=== PATIENT | male | born 1990 | race American Indian/Alaskan Native ===

== ENCOUNTER 2018-12-07 23:07 | Emergency (ER) | payer BC, OTHER ==
--- NOTE | 2018-12-07 23:19 | EDM.PDOC ---
ED HPI GENERAL MEDICAL PROBLEM - General Chief Complaint: Respiratory Problem Stated Complaint: RT CHEST PAIN Time Seen by Provider: 12/07/18 23:14 Source of Information: Reports: Patient History Limitations: Reports: No Limitations - History of Present Illness INITIAL COMMENTS - FREE TEXT/NARRATIVE: Pierre comes into [facility] ED with a week long hx of R upper chest pain, worse with deep breath, and some perceived SOB. Sxs have been progressive, without cough, fever, palpitations, or GI upset. Of interest is a PMH of pneumothorax about 10 years ago. He has tried no meds. - Related Data Allergies Allergy/AdvReac Type Severity Reaction Status Date / Time morphine Allergy Nausea and Verified 12/07/18 23:44 Vomiting cats Allergy Other Uncoded 12/07/18 23:44 Home Meds: Home Meds .Claritin 1 tab PO DAILY PRN 12/07/18 [History] .Ibuprofen 1 tab PO ASDIRECTED PRN 12/07/18 [History] Past Medical History Respiratory History: Reports: Pneumothorax ED ROS GENERAL - Review of Systems Review Of Systems: See Below Constitutional: Reports: No Symptoms HEENT: Reports: No Symptoms Respiratory: Reports: Pleuritic Chest Pain (R anterior chest) Cardiovascular: Reports: Chest Pain Endocrine: Reports: No Symptoms GI/Abdominal: Reports: No Symptoms : Reports: No Symptoms Musculoskeletal: Reports: No Symptoms Skin: Reports: No Symptoms Neurological: Reports: No Symptoms Psychiatric: Reports: No Symptoms Hematologic/Lymphatic: Reports: No Symptoms Immunologic: Reports: No Symptoms ED EXAM, GENERAL - Physical Exam Exam: See Below Exam Limited By: No Limitations General Appearance: Alert, WD/WN, No Apparent Distress, Anxious Eye Exam: Bilateral Eye: EOMI, Normal Inspection, PERRL Ears: Normal External Exam Nose: Normal Inspection Throat/Mouth: Normal Inspection, Normal Lips, Normal Teeth, Normal Gums, Normal Oropharynx, Normal Voice, No Airway Compromise Head: Normocephalic Neck: Normal Inspection, Supple, Non-Tender, Full Range of Motion Respiratory/Chest: No Respiratory Distress, Lungs Clear, Normal Breath Sounds, No Accessory Muscle Use, Chest Non-Tender Cardiovascular: Normal Peripheral Pulses, Regular Rate, Rhythm, No Edema, No Gallop, No JVD, No Murmur GI/Abdominal: Normal Bowel Sounds, Soft, Non-Tender, No Organomegaly, No Distention, No Mass (Male) Exam: Deferred Rectal (Males) Exam: Deferred Back Exam: Normal Inspection Extremities: Normal Inspection Neurological: Alert, Oriented, CN II-XII Intact, Normal Cognition, Normal Gait, No Motor/Sensory Deficits Psychiatric: Normal Affect, Anxious Skin Exam: Warm, Dry, Intact, Normal Color, No Rash Lymphatic: No Adenopathy Course - Vital Signs Text/Narrative:: Following assessment, a 2 view chest x ray was performed and demonstrated a small area of atelectasis in the R base. No other finding was reported by consulting radiology. Last Recorded V/S: Last Vital Signs Temp 36.7 C 12/07/18 23:40 Pulse 86 12/07/18 23:40 Resp 16 12/07/18 23:40 BP 146/88 H 12/07/18 23:40 Pulse Ox 96 12/07/18 23:40 - Orders/Labs/Meds Orders: Active Orders 24 hr Category Date Time Status Chest 2V [CR] Stat Exams 12/07/18 23:16 Taken Departure - Departure Time of Disposition: 00:55 Disposition: Home, Self-Care 01 Condition: Good Clinical Impression: Atypical chest pain - Discharge Information *PRESCRIPTION DRUG MONITORING PROGRAM REVIEWED*: Not Applicable *COPY OF PRESCRIPTION DRUG MONITORING REPORT IN PATIENT TERRA: Not Applicable Instructions: Nonspecific Chest Pain, [id number] Referrals: PCP,None [Primary Care Provider] - Forms: ED Department Discharge Additional Instructions: Atypical chest pain. May take ibuprofen or aleave for pain for 5 days. If pain persists after 5 days; please follow up with primary care provider. - Problem List & Annotations (1) Atypical chest pain SNOMED Code(s): 498144633 Code(s): R07.89 - OTHER CHEST PAIN Status: Acute Current Visit: Yes Annotation/Comment:: Atypical chest pain. I suggested NSAIDs bid for the next 5- 7 days. - Problem List Review Problem List Initiated/Reviewed/Updated: Yes - My Orders Last 24 Hours: My Active Orders 12/07/18 23:16 Chest 2V [CR] Stat - Assessment/Plan Last 24 Hours: My Active Orders 12/07/18 23:16 Chest 2V [CR] Stat Plan: Follow up with PCP if sxs persist.
== END 2018-12-08 00:56 | disposition home or self-care (01) ==
LOC: FB.ED 23:07
DX: R07.89 Other chest pain (principal); Z91.048 Other nonmedicinal substance allergy status; Z88.5 Allergy status to narcotic agent
CPT/HCPCS: 71046; 99283; 99283-25